=== PATIENT | male | born 1965 | race Caucasian/White ===

== ENCOUNTER → 2016-12-13 | Day surgery (SDC) | payer OTHER ==
[~2016-12-13] MED LIST: ADVIL200 M2 PO; FISH OIL 1,0001 EAC4 PO; PRINIVIL20 M1 PO; SINGULAIR PO
--- NOTE | ~2016-12-13 | OR ---
Unit #: [id number] #: [id number] Patient: JESSICA LOVING [id number] [facility]. [place], [place] [address] [id number] MR#: [id number] NAME: JESSICA LOVING ROOM: Date of Procedure: 12/13/2016 Admission Date: 12/13/2016 Surgeon: Ankit Jolly M.D. : 1965 Attending Physician: Ankit Jolly M.D. Referring Physician: Ankit Jolly M.D. Primary Care Physician: Kehinde Rojas M.D. OPERATIVE REPORT PREOPERATIVE DIAGNOSES Colorectal cancer screening. PROCEDURES PERFORMED Colonoscopy up to cecum with fair prep and visualization. POSTOPERATIVE DIAGNOSIS Mild sigmoid diverticulosis, otherwise normal examination up to cecum. RECOMMENDATIONS Repeat colonoscopy in 5 years. SEDATION USED MAC. DESCRIPTION OF PROCEDURE Following detailed explanation of potential risks and complications of a colonoscopy, namely perforation, bleeding, and complications related to sedation, the patient was brought to GI lab and laid in the left lateral decubitus position. A digital rectal examination was performed, which was normal. Lubricated tip of the Olympus video colonoscope was inserted through the anus and advanced under direct vision. The scope was advanced and passed up to sigmoid into descending colon. Scant small diverticula were noticed in this area. The scope tip was then navigated all the way up to cecum with visualization of the ileocecal valve and the appendiceal orifice. Preparation was fair with good visualization and photodocumentation was obtained. Successive segments of the colonic mucosa were examined upon withdrawal and appeared unremarkable. There being no polyps, mass lesions, or AVMs. Other than the scant diverticula seen in the left side, no other abnormalities noted. The patient did not have any hemorrhoids at anal verge. The scope was then withdrawn. The patient returned to the recovery area. He tolerated the procedure without any postprocedure complications. Dictated by... Gail Akers/anali TD: 12/13/2016 22:24 Unit #: [id number] #: [id number] Patient: JESSICA LOVING JOB #: [id number] OPERATIVE REPORT Page 1 of 1 X Ankit Jolly MD PROCEDURE OPERATIVE NOTE
== END | disposition home or self-care (01) ==
LOC: COPS 08:02
PROVIDERS: Internal Medicine Gastroenterology
PROC: 0DJD8ZZ Inspection of Lower Intestinal Tract, Via Natural or Artificial Opening Endoscopic (ICD-10-PCS; principal; 2016-12-13 09:30)
DX: Z12.11 Encounter for screening for malignant neoplasm of colon (principal); K57.30 Diverticulosis of large intestine without perforation or abscess without bleeding; I10 Essential (primary) hypertension; Z98.890 Other specified postprocedural states
CPT/HCPCS: J2250